=== PATIENT | female | born 1965 | race Caucasian/White ===

== ENCOUNTER 2019-08-16 06:05 | Inpatient (IN) | payer OTHER, SELFPAY ==
[2019-08-06 14:02] VITALS: BMI 32.1
[2019-08-16] VITALS (18 sets, daily range): BP systolic 109–140; BP diastolic 55–75; PULSE 76–102; RESP 11–20; TEMP 36–37; O2SAT 92–100; BMI 32.1
--- NOTE | 2019-08-16 | DI.RAD.S_ITS ---
PROCEDURE: XR LUMBAR SPINE 2-3V INDICATIONS: L4-5 L5-S1 TLIF TECHNIQUE: 2 views of the lumbar spine were acquired. COMPARISON: [facility], CR, XR LUMBAR SPINE FLEXION EXTENSION, 11/13/2018, 7:38. FINDINGS: 2 intraoperative fluoroscopy images demonstrate discectomy, laminectomy and posterior fusion at L4-L5 and L5-S1. There is grade one anterolisthesis at L4-L5, which appears unchanged. IMPRESSION: Discectomy, laminectomy and posterior fusion of L4-L5 and L5-S1. Dictated by: Humphrey Pedersen M.D. on 08/16/2019 at 12:06 Approved by: Humphrey Pedersen M.D. on 08/16/2019 at 12:07
[2019-08-16] MEDS: LACTATED RINGERS 1,000 ML 42 ML IV ×3 (06:50→09:46)
--- NOTE | 2019-08-16 07:44 | PM.PREOP ---
Pre-operative Note Interval Note History & Physical reviewed/Exam performed by Physician: Yes Changes to H&P: No
[2019-08-16] MEDS: CEFAZOLIN 2 GM/100 ML FROZ.PIGGY IV ×3 (07:47→23:45)
--- NOTE | 2019-08-16 08:37 | SUR.OPER ---
Prone on spine table, head in foam head support, padded chest and pelvic supports, gel pad at knees, lower legs supported by pillows; nipples, genitalia and toes free of pressure, arms secured on foam padded arm boards at <90 degrees abduction. Tape over blanket at thigh secured to table.
[2019-08-16] MEDS: BUPIVACAINE 0.25% W/ EPI 30 ML VIAL INJ (08:48)
[2019-08-16] MEDS: BUPIVACAINE LIPOSOME 266 MG/20 ML VIAL INJ (08:48)
[2019-08-16] MEDS: ACETAMINOPHEN IV 1,000 MG/100 ML VIAL 400 MG IV (10:40)
--- NOTE | 2019-08-16 11:55 | P.OP_ITS ---
Operative Date/Time/Diagnoses Date of procedure: 08/16/19 Time of procedure: 08:06 Pre-op diagnosis: 1. L4-5, L5-S1 spondylolisthesis 2. L4-5, L5-S1 spinal stenosis Post-op diagnosis: same Procedure & Clinicians Procedure: 1. L4-5, L5-S1 Postero-lateral and posterior interbody fusion 2. L4-5, L5-S1 interbody cage placement. 3. L4-5, L5-S1 decompressive laminectomy with bilateral facetecomies 4. L4-5, L5-S1 Posterior segmental instrumentation 5. Decker of bone marrow from iliac crest 6. Utilization of microsurgical technique and operating microscope Same procedure as scheduled: Yes Indications: Patient has been having chronic back pain and worsening lumbar radiculopathy. Patient failed multiple conservative management with worsening pain weakness and numbness in her lower extremity. Patient has been having difficulty performing activity of daily living. After discussing risks benefits of treatment options, patient elected proceed with surgery. Surgeon: Berhane Duran Licensed Sales Assistant: Leidy Butler Anesthesia Type: General Operative Notes Closure Type: primary Specimen(s): none sent Prosthetic devices, grafts, tissues, transplants, or devices: Globus Revolve, Rise cages Applied: catheter Estimated Blood Loss (mL): 100 Blood products transfused: none Procedure in detail: Patient was seen in the preoperative area. Risks and benefits of the surgery was discussed with the patient. Informed consent was obtained from the patient and placed in the chart. Surgical site was marked. Patient was taken to the operative room. General anesthesia was administered. Prophylactic antibiotic was given to the patient less than 30 min before the incision was made. Patient was placed into a prone position on the Blu table. Patient's back was then prepped and draped in the sterile fashion. Time- out was performed at this time. Using AP and lateral C-arm imaging the interval between L4-S1 was identified and marked on patient's back. A 2 inch incision 2 in from midline was made on the right side first. The fascia was incised in line with skin incision. Globus MARS retractors was placed inside the incision and docked onto the L4 and L5 lamina. Using microsurgical technique and operating microscope, a L4 and L5 pérez inectomy and L4-5 L5-S1 facetectomy was performed using a Kerrison rongeur. During the process of decompression more than 75% of bilateral L4-5 L5-S1 facets were removed in order to decompress the spinal canal and the lateral recess. The L4-5 L5-S1 level was grossly unstable after the decompression was completed and requiring the fusion procedure. The disc space at L4-5, L5-S1 was identified. And a total diskectomy was performed at L4-5, L5-S1 level. The endplates were decorticated using a rasp and shaver. The total diskectomy and decortication was performed at L4-5, L5-S1 level in order to to accomplish a L4- 5, L5-S1 fusion. The local bone from the laminectomy and facetectomy was saved for local bone grafting. After the total diskectomy and decortication was completed, Bio4 bone graft material was combined with local bone that was harvested earlier. At this time, a separate skin is incision was made over the iliac crest. A Jamshidi needle was inserted into the iliac crest through a separate skin incision. 5 cc of bone marrow aspiration was obtained through the separate skin incision using a Jamshidi needle from the iliac crest. The bone marrow aspiration was combined with local bone and the Bio4 bone grafting material. The bone grafting material was placed into the L4-5, L5-S1 interbody space along with two cages, one expandable cage at each level. The cages were expanded to their maximum height using the torque limiting screwdriver. At this time a mirror image incision was made on the left side. The fascia was incised in line with the skin incision. Globus MARS retractor was inserted and docked onto the L4-5, L5-S1 posterolateral gutter. Using the power drill, posterior-lateral decortication was performed at L4-5, L5-S1 level until bleeding cortical bone was identified. The remaining bone grafting material was placed into the L4-5 L5-S1 posterior lateral gutter he order to accomplish posterolateral fusion at the L4-5 L5-S1 levels. Using the double C-arm technique, pedicle screws were placed into the L4, L5, S1 pedicles bilaterally. This was done by placing the Jamshidi needle into the pedicles, then placing the guidewires over the Jamshidi needle, and finally placing the cannulated screws over the guidewires bilaterally. After the pedicle screws were placed, 2 titanium rods was locked into the heads of the pedicle screws using locking caps and torque limiting screwdriver. Total 6 pedicles screws were placed. Thread reducers were used to reduce patient's spondylolisthesis. An appropriate reduction was accomplished using the reduction tools and hardware placed. After all the hardware was placed, and confirmed with AP and lateral C-arm imaging, the wound was then irrigated with sterile normal saline and packed with Ray-Lindsey gauze for 3 min to accomplish hemostasis. After the gauze was removed the deep fascia was closed with #1 Vicryl suture. The subcutaneous layer was closed with 2-0 Vicryl. The skin was closed with skin caitlin. Patient tolerated the procedure well. There were no complications. Complications: none Post-operative Condition: stable Disposition: PACU Plan for aftercare: Admit to inpatient hospital
[2019-08-16] MEDS: INSULIN ASPART 100 UNIT/ML 10ML VIAL SUBCUT (12:34)
--- NOTE | 2019-08-16 13:32 | PC.NURSE ---
Pt to room 213 via bed from PACU. Pt sleepy but appropriate and wakes easily. Denies pain or nausea. Given fresh ice water to drink. Assisted with roll to her left side to inspect back dressing. Pt reminded not to bend, lift, or twist and to logroll in/out of bed. Ramírez draining clear yellow urine. SCD's on feet as ordered and running. Pt oriented to room, call light, bed controls and tv controls. Pt denies needs at this time and agrees to call for assistance as needed.
[2019-08-16] MEDS: SODIUM CHLORIDE 0.9% 1,000 ML 100 ML IV ×2 (13:36→23:39)
--- NOTE | 2019-08-16 14:26 | PT-IP ANOTE ---
Pt arrived AC unit an hour ago. Pt still feel disoriented but able to answer questions for social hx and PLOF. Will attempt PT later this afternoon or tomorrow morning.
[2019-08-16] MEDS: ONDANSETRON 4 MG/2 ML INJ IV (14:44)
[2019-08-16] MEDS: HYDROMORPHONE 0.5 MG INJ IV ×4 (14:54→23:45)
[2019-08-16] MEDS: OXYCODONE IR 5 MG TABLET 10 MG PO ×2 (18:01→21:58)
[2019-08-16] MEDS: LOVASTATIN 20 MG TABLET 40 MG PO (18:09)
[2019-08-16] MEDS: LISINOPRIL 20 MG TABLET 40 MG PO (18:21)
[2019-08-16] MEDS: DOCUSATE 100 MG CAPSULE PO (20:18)
[2019-08-16] MEDS: INSULIN NPH 100 UNIT/ML VIAL 26 UNIT SUBCUT (20:19)
[2019-08-16] MEDS: METFORMIN HCL 500 MG TABLET 1000 MG PO (20:19)
[2019-08-16] MEDS: SENNOSIDES 8.6 MG TABLET 17.2 MG PO (20:19)
[2019-08-16] MEDS: BECLOMETHASONE 80 MCG INH 10.6 GM 1 PUFF INH (20:30)
[2019-08-16] MEDS: hydrOXYzine pamoate 25 MG CAPSULE PO (23:45)
[2019-08-17] VITALS (9 sets, daily range): BP systolic 116–132; BP diastolic 53–71; PULSE 98–105; RESP 12–18; TEMP 36.7–37.7; O2SAT 92–100
[2019-08-17] MEDS: HYDROMORPHONE 0.5 MG INJ IV (03:22)
[2019-08-17] MEDS: OXYCODONE IR 5 MG TABLET 10 MG PO ×3 (03:23→21:28)
[2019-08-17] MEDS: ACETAMINOPHEN 325 MG TABLET 650 MG PO ×2 (03:34→13:23)
[2019-08-17 06:03] LABS: Hematocrit 37.8 % (36-46); Hemoglobin 12.4 g/dL (12.0-16.0)
--- NOTE | 2019-08-17 07:43 | PC.NURSE ---
Pt VSS, except pt has been tachy this night in the 99-106. Lung sounds clear bilaterally. Pt has pain at times 10/10. W/ Q 3 10mg of oxycodone and Q2 Dilaudid pain was more manageable. Ice was applied. Dressing is clean/dry and intact and CMS is intact.
[2019-08-17] MEDS: BECLOMETHASONE 80 MCG INH 10.6 GM 1 PUFF INH ×2 (08:27→19:36)
[2019-08-17] MEDS: DOCUSATE 100 MG CAPSULE PO ×2 (08:53→21:14)
[2019-08-17] MEDS: dilTIAZem CD 240 MG CAP PO (08:53)
[2019-08-17] MEDS: METFORMIN HCL 500 MG TABLET 1000 MG PO ×2 (08:53→21:17)
[2019-08-17] MEDS: FLUTICASONE 120 SPRAY/16 GM SPRAY.SUSP NASAL (08:53)
[2019-08-17] MEDS: INSULIN NPH 100 UNIT/ML VIAL 20 UNIT SUBCUT (08:56)
[2019-08-17] MEDS: diphenhydrAMINE 25 MG TABLET PO (09:12)
--- NOTE | 2019-08-17 09:23 | PM.PNPO.1 ---
Subjective Subjective Date Patient Seen: 08/17/19 Time Patient Seen: 09:23 Interval history: Pain moderate to severe. Denies fever chills. No nausea vomiting. Patient has not yet been up with physical therapy. Otherwise without complaints. Exam Vital Signs (past 8 hours): - 08/17/19 06:00 08/17/19 08:27 08/17/19 08:30 Temperature 98.0 F Pulse Rate 102 H 101 H Respiratory Rate 18 12 Blood Pressure 116/53 L Pulse Oximetry 98 100 94 08/17/19 08:35 Temperature 99.7 F H Pulse Rate 101 H Respiratory Rate 16 Blood Pressure 123/60 Pulse Oximetry 96 Oxygen Delivery Method Room Air Oxygen Flow Rate 1 Narrative Exam Narrative: Pleasant 53-year-old female resting comfortably in bed in no apparent distress. Patient having breakfast. Lumbar dressing is clean, dry and intact. Motor functions intact distal bilateral lower extremities. Sensation grossly intact to light touch bilateral lower extremities. Both legs are warm and dry. Objective Labs Result Diagrams: 08/17/19 05:52 Labs: Laboratory Results - last 24 hr 08/17/19 05:52 Hgb 12.4 Hct 37.8 Assessment & Plan Post-op Postoperative Procedures: Procedures Operation Date: 08/16/19 07:45 Actual Procedures Side Surgeon p L4-5, L5-S1 TLIF w/posterior instrumentation Not Applicable Berhane Duran MD postop day 1. Mobilize with physical therapy. Benadryl ordered for itching. We will discontinue IV Dilaudid. Ordered 2 mg Dilaudid Q 4 hours as needed pain. Possible discharge home tomorrow. Quality VTE Deep Vein Thrombosis/Pulmonary Embolism Present on Admission: No
--- NOTE | 2019-08-17 10:11 | PT.IIE ---
Current Diagnoses Spondylolisthesis, lumbar region (08/16/19) Spondylolisthesis, lumbosacral region (08/16/19) Other spondylosis with radiculopathy, lumbosacral region (08/16/19) Spinal stenosis, lumbar region without neurogenic claudication (08/16/19) Surgery Performed Operation Date: 08/16/19 07:45 Actual Procedures p L4-5, L5-S1 TLIF w/posterior instrumentation(Not Applicable) - Berhane Duran MD Surgical History (Last Updated 08/15/19 @ 13:19 by Pastora Peralta RN) Hx of cholecystectomy (Acute) Hx of tonsillectomy (Acute) Hx of tubal ligation (Acute) S/P ankle ligament repair (Acute ~1969) Medical History (Last Updated 08/15/19 @ 13:19 by Pastora Peralta RN) Asthma (Acute) Back pain (Acute) Diabetes (Acute) Diabetic neuropathy (Acute) GERD (gastroesophageal reflux disease) (Acute) HLD (hyperlipidemia) (Acute) HTN (hypertension) (Acute) INDIRA on CPAP (Acute) Physical Therapy Inpatient Evaluation/Re-Eval M1 PT/OT-IP Prior Functional Status Start: 08/16/19 14:19 Freq: NEEDED Status: Active Protocol: Document 08/17/19 10:11 AB (Rec: 08/17/19 12:44 AB [id number]) Medical Review Prior Functional Status Medical History Reviewed Yes Diet/Fluid Consistency Regular Communication Able to make needs known Mobility and Gait pt stated that she is independent with all mobilities and ambulation without AD but occasionally uses a SPC depending on her back pain Activities of Daily Living and IADL's per OT's noteindependent with ADLs and IADLs who is also able to drive. Social History Household Members spouse,children Living Arrangements House Number of Floors (Floors) One Floor Number of Stairs To Enter/Railing? 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 M2 PT-IP Current Condition Start: 08/16/19 14:19 Freq: NEEDED Status: Active Protocol: Document 08/17/19 10:11 AB (Rec: 08/17/19 12:44 AB [id number]) Physical Therapy Current Condition Current Condition Evaluation Date 08/17/19 Treatment Diagnosis s/p L4-5, L5S1 fusion/lami; difficulty in walking Onset Date 08/16/19 Precautions Lumbar Precautions Log Roll,No Twisting,Limit Bending,Lifting Restriction of 10 lbs,Gait Belt above Incisional Area M3 PT-IP Subjective Start: 08/16/19 14:19 Freq: NEEDED Status: Active Protocol: Document 08/17/19 10:11 AB (Rec: 08/17/19 12:44 AB [id number]) Subjective Physical Therapy Visit Type Type Initial Evaluation Visit Start Time 10:11 Visit Stop Time 10:48 Total Visit Minutes 37 Number of IT ADMIN Visits 0 Physical Therapy Visit Comments Patient Comments pt agreeable to do PT Therapy Pain Assessment Pain When Pain Assessed At Rest Pain Present Pain Present Pain Reported Location back Intensity 4 Scale Used Numeric (1 - 10) Pain Management Techniques Re-positioning,Timing of Activity with Medications M4 PT-IP Mobility and Gait Start: 08/16/19 14:19 Freq: NEEDED Status: Active Protocol: Document 08/17/19 10:11 AB (Rec: 08/17/19 12:44 AB [id number]) PT-Bed Mobility Assessment Rolling Type of Rolling Log Rolling Level of Assist Moderate Assistance Supine to Sit Supine to Sit Maximum Assistance,1 Person Assistance Sit to Supine Sit to Supine Moderate Assistance PT-Transfer Assessment Comments Mobility Comments BP supine: 134/77 . pt completed supine to sit max A and max cues for log roll techiques. pt was able to sit on EOB CGA. CGA dizziness. BP sittin/65. pt sat for ~ 5 min. instructed with scooting on to EOB and completed with min A. c/o increase dizziness: BP 91/45. assisted pt back in bed due to pt's c/o getting really dizzy. completed sit to supine mod A and cues. positioned pt in bed. call light and table placed within reach. PT-Balance Assessment Sitting Balance and Reactions Static Sitting Balance Ability Good Dynamic Sitting Balance Ability Fair M5 PT-IP Objective Assessments Start: 08/16/19 14:19 Freq: NEEDED Status: Active Protocol: Document 08/17/19 10:11 AB (Rec: 08/17/19 12:44 AB [id number]) Orientation Orientation/Cognition Level of Alertness Alert Orientation Name,Place,Situation Language Function Ability Hard of Hearing Safety Awareness Decreased Safety Awareness Gross Range of Motion Lower Extremity ROM Assessment Within Functional Limits Strength Lower Extremity Strength Assessment Bilaterally Impaired Hip 3+/5 Knee 3+/5 Coordination Assessment Gross Coordination Gross Coordination WNL Sensation Assessment Sensation Gross Sensation Right LE Impaired,Left LE Impaired Light Touch Impaired Proprioception (Position) Impaired Sensation Description Numbness,Tingling Comments Sensation Comments stated the she has bilateral LE diabetic neuropathy Muscle Tone Muscle Tone WNL Yes M6 PT-IP Treatment Start: 08/16/19 14:19 Freq: NEEDED Status: Active Protocol: Document 08/17/19 10:11 AB (Rec: 08/17/19 12:44 AB [id number]) Physical Therapy Treatment Exercises Exercises Heel Slides Education Education Provided Precautions,Weight Bearing Status,Post-Op Packet,Safety M7 PT-IP Assessment and Plan Start: 08/16/19 14:19 Freq: NEEDED Status: Active Protocol: Document 08/17/19 10:11 AB (Rec: 08/17/19 12:44 AB [id number]) PT Summary Assessment and Plan Potential Rehabilitation Potential Good Status of Condition at Evaluation Evolving Summary Impairments Pain,ROM,Strength,Balance, Coordination,Sensation,Tone, Cognition,Bed Mobility, Transfers,Gait,Activity Tolerance Assessment Summary pt requiring max A with bed mobility and unable to tolerate much activity with decrease in BP sitting on EOB. will have to assess further to determine pt's functional mobility and safe d/c needs. pt plans to go home and spouse /children will assist her. will have to conduct caregiver training when appropriate. Goals Bed Mobility Goal Standby Assistance Transfer Goal Standby Assistance,Front Wheeled Walker Gait Goal Standby Assistance,Front Wheel Walker Gait Distance 150 Other Goals up/down 1 step using FWW Days to Meet Goals 10 Frequency of Treatment Frequency Of Treatment Twice a Day Treatment Plan Physical Therapy Treatment Plan Bed Mobility Training,Transfer Training,Gait Training, Therapeutic Exercise,Balance Retraining,Post Op Education, Discharge Planning,Hot or Cold Pack,Neuromuscular Re-ed, Coordination Retraining,Manual Therapy Recommendations To Nursing Amount of Assist Needed PT/OT Assist Only Discharge Recommendations PT Discharge Recommendations Home with 19/06 Assist,Home Health,SNF Rehab Other Discharge Recommendations depending on progress: SNF vs home with 24/7 and HHPT Equipment Needed for Home Before FWW if not safe with 4WW Discharge
[2019-08-17] MEDS: INSULIN ASPART 100 UNIT/ML INSULN PEN SUBCUT ×2 (12:20→18:40)
[2019-08-17] MEDS: INSULIN ASPART 100 UNIT/ML INSULN PEN 10 UNIT SUBCUT ×2 (12:20→18:39)
--- NOTE | 2019-08-17 14:45 | PT-IP ANOTE ---
Hold per RN, due to low BP and dizziness.
--- NOTE | 2019-08-17 16:29 | OT.IP.EVAL ---
Current Diagnoses Spondylolisthesis, lumbar region (08/16/19) Spondylolisthesis, lumbosacral region (08/16/19) Other spondylosis with radiculopathy, lumbosacral region (08/16/19) Spinal stenosis, lumbar region without neurogenic claudication (08/16/19) Surgery Performed Operation Date: 08/16/19 07:45 Actual Procedures p L4-5, L5-S1 TLIF w/posterior instrumentation(Not Applicable) - Berhane Duran MD Past Medical History (Last Updated 08/15/19 @ 13:19 by Pastora Peralta RN) Asthma (Acute) Back pain (Acute) Diabetes (Acute) Diabetic neuropathy (Acute) GERD (gastroesophageal reflux disease) (Acute) HLD (hyperlipidemia) (Acute) HTN (hypertension) (Acute) INDIRA on CPAP (Acute) Surgical History (Last Updated 08/15/19 @ 13:19 by Pastora Peralta RN) Hx of cholecystectomy (Acute) Hx of tonsillectomy (Acute) Hx of tubal ligation (Acute) S/P ankle ligament repair (Acute ~1969) Occupational Therapy Inpatient Evaluation/Re-Eval M1 PT/OT-IP Prior Functional Status Start: 08/16/19 14:19 Freq: NEEDED Status: Active Protocol: Document 08/17/19 16:14 CGR (Rec: 08/17/19 16:29 CGR [id number]) Medical Review Prior Functional Status Medical History Reviewed Yes Diet/Fluid Consistency Regular Communication Able to make needs known Mobility and Gait pt stated that she is independent with all mobilities and ambulation without AD but occasionally uses a SPC depending on her back pain Activities of Daily Living and IADL's Pt is independent with ADLs and IADLs who is also able to drive. Social History Household Members spouse,children Living Arrangements House Number of Floors (Floors) One Floor Number of Stairs To Enter/Railing? 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 M2 OT-IP Current Condition Start: 08/17/19 16:14 Freq: Status: Active Protocol: Document 08/17/19 16:14 CGR (Rec: 08/17/19 16:29 CGR [id number]) Occupational Therapy Current Condition Current Condition Evaluation Date 08/17/19 Treatment Diagnosis L4-S1 TLIF Post Operative Precautions Lumbar Precautions Log Roll,No Twisting,Limit Bending,Lifting Restriction of 10 lbs,Gait Belt above Incisional Area M3 OT- IP Subjective and Pain Start: 08/17/19 16:14 Freq: Status: Active Protocol: Document 08/17/19 16:14 CGR (Rec: 08/17/19 16:29 CGR [id number]) OT- Subjective Occupational Therapy Visit Type Type Initial Evaluation Visit Start Time 14:45 Visit Stop Time 15:15 Total Visit Minutes 41 Notes Earlier session to obtain Pts home set up and PLOF from 1120 -1131. Returned later in day after pt has been sitting up for some time. OT Pain Assessment Pain When Pain Assessed At Rest Pain Present Pain Present Pain Reported Location back Intensity 2 Scale Used Numeric (1 - 10) Management Techniques Distraction M4 OT- IP ADL's Start: 08/17/19 16:14 Freq: Status: Active Protocol: Document 08/17/19 16:14 CGR (Rec: 08/17/19 16:29 CGR [id number]) OT UOL-[id number]-Kturjyz Comments OT Self-Feeding Comments Not meal time but pt is able to get water glass to mouth without difficulty. OT ADL-Grooming Comments OT Grooming Comments Not performed OT ADL-Oral Care Comments Oral Care Comments Not performed OT ADL-Dressing General Eval Lower Body Dressing Ability Total Assistance Areas Needing Assistance Socks Comments OT Dressing Comments Pt states that she was able to doff socks without assist. Not witnessed. OT ADL-Toileting Comments OT Toileting Comments Not performed in this session. OT ADL-Bathing Comments OT Bathing Comments Not performed in this session. M5 OT- IP IADL's Start: 08/17/19 16:14 Freq: Status: Active Protocol: Document 08/17/19 16:14 CGR (Rec: 08/17/19 16:29 CGR [id number]) OT-Instrumental Activities of Daily Living Deficits IADL Deficits Identified No Deficits Home Safety Awareness Awareness of Need for Assistance at Home Good Awareness Ability to Problem Solve Emergency Able to Problem Solve Situations Medication Management Medication Management No Deficits Identified Money Management Money Management No Deficits Identified Meal Preparation Meal Preparation Caregiver Provides Assist Drawbridge Tender Drawbridge Tender Caregiver Provides Assist Driving Driving Caregiver Provides Assist M6 OT- IP Functional Cognition Start: 08/17/19 16:14 Freq: Status: Active Protocol: Document 08/17/19 16:14 CGR (Rec: 08/17/19 16:29 CGR [id number]) Cognitive Factors Limiting Selfcare Function Cognitive Ability Level of Alertness Alert Patient Orientation Name,Age,Birthday,Month,Date, Year,Day of Week,Place, Situation Attention Span Ability Capable of Focused Attention, Capable of Sustained Attention Ability to Follow Commands Able to Follow Multi-Step Commands Memory Description No Deficits Noted Safety Awareness No Deficits Noted Problem Solving Ability No deficits Noted Executive Function Ability No Deficits Noted Abstract Thinking Ability No Deficits Noted OT- Vision and Hearing OT- Hearing Assessment OT- Hearing Assessment WFL OT- Vision Assessment Visual Acuity WFL,Glasses For Reading Visual Attentiveness WFL Occular Pursuits WFL Visual Convergence WFL Visual [place] WFL M7 OT- IP Mobility and Balance Start: 08/17/19 16:14 Freq: Status: Active Protocol: Document 08/17/19 16:14 CGR (Rec: 08/17/19 16:29 CGR [id number]) OT- Bed Mobility Assessment Rolling Level of Assistance Minimal Assistance Supine to Sit Supine to Sit Assist Minimal Assistance Sit to Supine Sit to Supine Assist Maximum Assistance,2 Person Assistance Scooting Scooting to Edge of Bed Contact Guard Assistance OT-Transfer Assessment Sit to and From Stand Sit to and from Stand Minimal Assistance Comments Mobility Comments Pt has been hypotensive with positional changes. 133/73 supine, 123/71 sitting, 110/45 standing then states feeling dizzy. Returned to supine with max x 2 for safety. OT- Gait Assessment Comments Gait Ability Comments Not performed d/t orthostatic hypotension. OT- Balance Assessment Sitting Balance and Reactions Static Sitting Balance Ability Good Dynamic Sitting Balance Ability Fair M8 OT- IP Objective Assessments Start: 08/17/19 16:14 Freq: Status: Active Protocol: Document 08/17/19 16:14 CGR (Rec: 08/17/19 16:29 CGR [id number]) OT Gross Range of Motion Upper Extremity Range of Motion Assessment Within Functional Limits OT Strength Upper Extremity Strength Assessment Within Functional Limits Comments Strength Comments Grossly 4/5 OT- Coordination Assessment Upper Extremity Finger to Nose Test Within Functional Limits Finger Tapping Test Within Functional Limits OT-Muscle Tone Assessment Muscle Tone WNL Yes OT Sensation Assessment Edema Edema Absent M9 OT- IP Assessment and Plan Start: 08/17/19 16:14 Freq: Status: Active Protocol: Document 08/17/19 16:14 CGR (Rec: 08/17/19 16:29 CGR [id number]) OT Summary Assessment and Plan Potential Rehabilitation Potential Good Analytic Complexity at Evaluation Low Summary OT Impairments Pain,Functional Mobility, Grooming,Dressing,Toileting, Bathing,Toilet Transfers, Shower Transfers Progress Towards Goals Slow Progress due to Medical Issues Assessment Summary Pt presents as a low complexity evaluation s/p lumbar sx. Pt currently is orthostatic with positional changed which limited OT eval. Pt is likely to progress quickly with ADLs and functional mobility once she is able to tolerate upright posture. Continue to follow for OT services. At this time SNF is recommended d/t orthostatics but pt is likely to progress to be safe for d/c home with family prior to discharge. Goals Grooming Goal Independent Dressing Goal Independent,Farm Products Shipper,Sock Aid Toileting Goal Independent Bathing Goal Independent Toilet Transfer Goal Independent Shower Transfer Goal Independent Days to Meet Goals 5 Frequency of Treatment Frequency Of Treatment Once a Day Treatment Plan OT Treatment Plan ADL Training,Functional Mobility,Patient/Family Education,Discharge Planning Discharge Recommendations OT Discharge Recommendations Home with Assistance Other Discharge Recommendations SNF d/t orthostatics but likely to progress to safe discharge home once she is able to mobilize.
--- NOTE | 2019-08-17 16:29 | CM.DANOTE ---
Addendum entered by Rajani Solis 08/17/19 17:21: Faxed initial clinicals to [place] per protocol. KJS Original Note: DCP/Assessment: Reviewed chart. Patient is a 53yr old female admitted [facility] elective spinal surgery performed on 08-16-[address] Duran. PCP listed is Suze Garcia. Primary payor is 1)[facility]. Met with patient and spouse/Taon at bedside explained CM/SW role. Patient hopes to d/c home within the next 24-48hrs. Therapy evaluation pending. Patient reports that she is primarily I in all ADL's. Has walker in room but did not use prior to surgery. Patient drives at baseline. Spouse supportive and agreeable to assist as needed. P: Anticipate home when stable. CM team to continue to follow. VIRGIE Demarco Discharge Planning/Care Management CM Discharge Assessment Start: 08/17/19 16:27 Freq: Status: Active Protocol: Document 08/17/19 16:28 ANITAS (Rec: 08/17/19 16:29 KJ [id number]) Discharge Planning Assessment Assigned Protection Consultant VIRGIE Demarco Contact Information Toan Glasgow (spouse) Advance Directives? No History Provided By Patient,Significant Other, Medical Record Prior Living Arrangements House Household Members spouse,children Type of transporation used prior to Drives own vehicle admit Independent with ADL's Yes Is patient alert and oriented? Yes Caregiver for Another No DME Already Rented / Owned FWW / Walker Barriers to Discharge No Discharge Plan Home Transportation Arrangement Family to provide transport. Whiteboard Updated in Patient Room with Yes name and ext. # of Protection Consultant Review Status In Process Next Review Type Continued Stay Review Pre-Anesthesia Assessment Start: 08/06/19 14:02 Freq: Status: Complete Protocol: Document 08/06/19 14:02 CAB (Rec: 08/06/19 14:05 CAB [id number]) Pre-Anesthesia Assessment Patient Information Reviewed Via Phone Assessment Assessment Completed With Patient Diagnostic Results BMP/CMP,CBC Comment Labs @ [facility] 06/30/19 Primary Care Provider Suze Garcia Seen Specialist in Last 12 Months Yes Specialist Seen Orthopedist,Other Comment Pain specialist Primary Language Greenlandic Resourcing Advisor Required No Height 165.1 cm Weight 87.543 kg Body Mass Index (BMI) 32.1 Hearing Ability Normal Visual Assist Glasses Dentition Type Teeth, Natural Present Barriers to Learning None Other Aids No Hx Anesthesia Reactions No Hx Family Anesthesia Reaction No Hx Malignant Hyperthermia No Hx Blood Transfusions No Anesthesia Review Requested No alcohol intake former Alcohol Intake Frequency Other: Quit age 20 Smoking Status Never smoker Substance Use Type does not use Pain Present Pain Reported Musculoskeletal Symptoms Abnormal Gait,Back Pain, Difficulty Walking,Muscle Weakness,Numbness,Radiating Pain into Limb History of Falling (Recent or History of No ) Patient is completely paralyzed or No completely immobile Prosthesis or Orthotic Device Cane,Front Wheel Walker Mental Status Oriented to own ability Is patient on oxygen? No Does patient have SANDERSON/SOB No: r/t Asthma Hx Sleep Apnea Yes CPAP/BIPAP use prescribed and used routinely Will Bring CPAP/BIPAP DOS Yes Currently Taking a Beta Robert No Can You Climb a Flight of Stairs Without No: r/t Asthma SOB Hx Chest Pain No Hx SOB No Hx Syncope or Dizziness No Anti-Coagulant Therapy No Has a Correctional Supervisor No Cardiac Testing No Hx Pacemaker/ICD No Pacemaker Rep Required? No Cardiac Clearance Received Not Applicable Diet Type At Home Regular dysphagia No Urinary Catheter Present No Hx Urinary Self Catheterization No Diabetes Yes: Checks blood sugars 6x/ day HgbA1C 6.1 Date 06/30/19 Patient No Lactating No Hx Drug Resistant Organism No Presence of External or Internal Medical Yes: IUD Devices Have you traveled outside the [facility] [place] in the last 30 days? Marital Status Lives With spouse,children Prior Living Arrangements House Number of Floors (Floors) One Floor Support System Child/Children,Friend(s), Spouse Patient Discharge Plan Description Return Home Comment Pt advised 2 day length of stay per surgeon Feels Safe in Current Environment Yes Been Physically Hurt or Threatened By a No Person in Current Environment Do you have thoughts of harming yourself None or others? Are you currently considering suicide? No Do you have a plan to hurt yourself or No Plan others? Do You Have Any Spiritual Beliefs That No May Affect Your HC Choices? Do You Have Any Cultural Practices That No May Affect Your HC Choices? Who Can We Speak to About Patient's Care family, friends Identifying Code for Release of Patient Declines to issue Information Health Care Proxy/Next of Kin Hugo Joya () Health Care Proxy Emergency Contact Name Hugo Joya () Emergency Contact Advance Directives? No: declines further information PAC Instructions Bring CPAP/BIPAP,Durable medical equipment,Medications to take/avoid,Nasal antibiotic ,No ETOH/petroleum product on skin DOS,NPO,Post-op transportation,Pre-surgical wash,Sturdy shoes/comfortable clothes,Do not bring valuables and remove jewelry
--- NOTE | 2019-08-17 18:27 | PC.NURSE ---
Addendum entered by Julia Pierre R.N. 08/17/19 22:14: Pt med @ 2100 for discomfort w/good relief. Ramírez cath patent clear urine. HS CBG = 185 HL intact/patent. Stable post op course. Call light w/in reach, bed alarm on for pt safety. Continue w/plan of care. Original Note: Pt resting at intervals. Denies discomfort at this time. Lungs clear,SpO2 96%RA Dsg to surgical back CDI. Ramírez cath patent clear urine. Call light w/in reach. Pt calls appropriately for needs.
[2019-08-17] MEDS: LISINOPRIL 20 MG TABLET 40 MG PO (18:38)
[2019-08-17] MEDS: INSULIN NPH 100 UNIT/ML VIAL 26 UNIT SUBCUT (21:10)
[2019-08-17] MEDS: LOVASTATIN 20 MG TABLET 40 MG PO (21:14)
[2019-08-17] MEDS: SENNOSIDES 8.6 MG TABLET 17.2 MG PO (21:17)
[2019-08-17] MEDS: hydrOXYzine pamoate 25 MG CAPSULE PO (21:28)
[2019-08-18] VITALS (9 sets, daily range): BP systolic 101–129; BP diastolic 53–65; PULSE 85–106; RESP 16–20; TEMP 36.3–37.6; O2SAT 94–98
[2019-08-18] MEDS: ACETAMINOPHEN 325 MG TABLET 650 MG PO ×3 (03:24→20:36)
--- NOTE | 2019-08-18 03:28 | PC.NURSE ---
Addendum entered by Marleen Angel R.N. 08/18/19 05:42: Pt refuses to have Darrell GAYTAN'd at this time. She is concerned about her mobility and lack of mobility that she had w/ PT. Pt is encouraged to use IS, do deep breathing and coughing. Pt has SCD's applied this night. Original Note: PT VSS, pain level 1/10 medicated with tylenol 650mg. SCD's applied, pt intructed to use IS.
[2019-08-18] MEDS: BECLOMETHASONE 80 MCG INH 10.6 GM 1 PUFF INH ×2 (07:33→19:32)
[2019-08-18] MEDS: FLUTICASONE 120 SPRAY/16 GM SPRAY.SUSP NASAL (08:49)
[2019-08-18] MEDS: dilTIAZem CD 240 MG CAP PO (08:50)
[2019-08-18] MEDS: INSULIN NPH 100 UNIT/ML VIAL 20 UNIT SUBCUT (08:54)
[2019-08-18] MEDS: DOCUSATE 100 MG CAPSULE PO ×2 (08:58→20:36)
[2019-08-18] MEDS: INSULIN ASPART 100 UNIT/ML INSULN PEN 10 UNIT SUBCUT ×3 (08:58→16:47)
[2019-08-18] MEDS: METFORMIN HCL 500 MG TABLET 1000 MG PO ×2 (08:58→20:36)
--- NOTE | 2019-08-18 09:55 | PT.IPTN ---
Current Diagnoses Spondylolisthesis, lumbar region (08/16/19) Spondylolisthesis, lumbosacral region (08/16/19) Other spondylosis with radiculopathy, lumbosacral region (08/16/19) Spinal stenosis, lumbar region without neurogenic claudication (08/16/19) Surgery Performed Operation Date: 08/16/19 07:45 Actual Procedures p L4-5, L5-S1 TLIF w/posterior instrumentation(Not Applicable) - Berhane Duran MD Physical Therapy Treatment Note M2 PT-IP Current Condition Start: 08/16/19 14:19 Freq: NEEDED Status: Active Protocol: Document 08/17/19 10:11 AB (Rec: 08/17/19 12:44 AB [id number]) Physical Therapy Current Condition Current Condition Evaluation Date 08/17/19 Treatment Diagnosis s/p L4-5, L5S1 fusion/lami; difficulty in walking Onset Date 08/16/19 Precautions Lumbar Precautions Log Roll,No Twisting,Limit Bending,Lifting Restriction of 10 lbs,Gait Belt above Incisional Area M3 PT-IP Subjective Start: 08/16/19 14:19 Freq: NEEDED Status: Active Protocol: Document 08/18/19 09:28 CLB (Rec: 08/18/19 12:03 CLB [id number]) Subjective Physical Therapy Visit Type Type Treatment Note Visit Start Time 09:28 Visit Stop Time 09:55 Total Visit Minutes 27 Number of MEDICAL REIMBURSEMENT SPECIALIST Visits 1 Physical Therapy Visit Comments Patient Comments pt agreeable to do PT Therapy Pain Assessment Pain When Pain Assessed At Rest Pain Present Pain Present Pain Reported Location back Intensity 1 Scale Used Numeric (1 - 10) Pain Management Techniques Re-positioning,Timing of Activity with Medications M4 PT-IP Mobility and Gait Start: 08/16/19 14:19 Freq: NEEDED Status: Active Protocol: Document 08/18/19 09:28 CLB (Rec: 08/18/19 12:03 CLB [id number]) PT-Bed Mobility Assessment Rolling Type of Rolling Log Rolling Level of Assist Minimal Assistance Supine to Sit Supine to Sit Minimal Assistance,1 Person Assistance,Bedrails Sit to Supine Sit to Supine Minimal Assistance,1 Person Assistance Scooting Scooting to Edge of Bed Standby Assistance PT-Transfer Assessment Sit to and From Stand Sit to and from Stand Minimal Assistance,1 Person Assistance,Use of Upper Extremities Comments Mobility Comments BP in supine 131/64, BP in sitting 128/69, Pt stood and while waiting for BP pt began to get dizzy stating she felt tingly and felt her hands going numb. Pt BP in standing 95/55, pt was returned to supine Min A where she recovered quickly and dizziness subsided. Pt wanted to try standing once more with same results this time was able to sit at EOB to recover. Pt was returned to supine after sitting for a few minutes Min A. Gait Assessment Comments Gait Comments unable at this time due to BP. M5 PT-IP Objective Assessments Start: 08/16/19 14:19 Freq: NEEDED Status: Active Protocol: Document 08/17/19 10:11 AB (Rec: 08/17/19 12:44 AB [id number]) Orientation Orientation/Cognition Level of Alertness Alert Orientation Name,Place,Situation Language Function Ability Hard of Hearing Safety Awareness Decreased Safety Awareness Gross Range of Motion Lower Extremity ROM Assessment Within Functional Limits Strength Lower Extremity Strength Assessment Bilaterally Impaired Hip 3+/5 Knee 3+/5 Coordination Assessment Gross Coordination Gross Coordination WNL Sensation Assessment Sensation Gross Sensation Right LE Impaired,Left LE Impaired Light Touch Impaired Proprioception (Position) Impaired Sensation Description Numbness,Tingling Comments Sensation Comments stated the she has bilateral LE diabetic neuropathy Muscle Tone Muscle Tone WNL Yes M6 PT-IP Treatment Start: 08/16/19 14:19 Freq: NEEDED Status: Active Protocol: Document 08/17/19 10:11 AB (Rec: 08/17/19 12:44 AB [id number]) Physical Therapy Treatment Exercises Exercises Heel Slides Education Education Provided Precautions,Weight Bearing Status,Post-Op Packet,Safety M7 PT-IP Assessment and Plan Start: 08/16/19 14:19 Freq: NEEDED Status: Active Protocol: Document 08/18/19 09:28 CLB (Rec: 08/18/19 12:03 CLB [id number]) PT Summary Assessment and Plan Potential Rehabilitation Potential Good Status of Condition at Evaluation Evolving Summary Impairments Pain,ROM,Strength,Balance, Coordination,Sensation,Tone, Cognition,Bed Mobility, Transfers,Gait,Activity Tolerance Assessment Summary Pt improving with bed mobility requiring Min A and Min A for sit-stand. Pt unable to proceed with ambulation due to drop in BP with c/o dizziness . Pt had 1/10 pain during tx and recalled 1/3 back precautions. Pt left in bed with SCD's on and RN at bedside. Goals Bed Mobility Goal Standby Assistance Transfer Goal Standby Assistance,Front Wheeled Walker Gait Goal Standby Assistance,Front Wheel Walker Gait Distance 150 Other Goals up/down 1 step using FWW Days to Meet Goals 10 Frequency of Treatment Frequency Of Treatment Twice a Day Treatment Plan Physical Therapy Treatment Plan Bed Mobility Training,Transfer Training,Gait Training, Therapeutic Exercise,Balance Retraining,Post Op Education, Discharge Planning,Hot or Cold Pack,Neuromuscular Re-ed, Coordination Retraining,Manual Therapy Recommendations To Nursing Amount of Assist Needed PT/OT Assist Only Discharge Recommendations PT Discharge Recommendations Home with 24/7 Assist,Home Health,SNF Rehab Other Discharge Recommendations depending on progress: SNF vs home with 24/7 and HHPT Equipment Needed for Home Before FWW if not safe with 4WW Discharge
--- NOTE | 2019-08-18 11:54 | PM.PNPO.1 ---
Subjective Subjective Date Patient Seen: 08/18/19 Time Patient Seen: 11:54 Interval history: Recovering well status post lumbar surgery by Dr. Duran. No complaints of pain but still having some lightheadedness when standing and walking which is slowing down rehabilitation. Exam Vital Signs (past 8 hours): - 08/18/19 05:59 08/18/19 07:37 08/18/19 08:00 Temperature 97.4 F L 98.8 F Pulse Rate 85 93 H 92 H Respiratory Rate 16 16 18 Blood Pressure 118/64 121/62 Pulse Oximetry 95 97 94 Fraction of Inspired Oxygen 21 Oxygen Delivery Method Room Air Oxygen Flow Rate 0 Narrative Exam Narrative: Dressing dry and intact distal neurovascular exam is intact. Objective Labs Result Diagrams: 08/17/19 05:52 Assessment & Plan Post-op Postoperative Procedures: Procedures Operation Date: 08/16/19 07:45 Actual Procedures Side Surgeon p L4-5, L5-S1 TLIF w/posterior instrumentation Not Applicable Berhane Duran MD Postoperative status narrative: Doing well somewhat slow recovery due to orthostasis. Anticipate this will improve substantially over the next 24 hours with fluid management and decreased medication. Postoperative plan narrative: Anticipated discharge home tomorrow Time Spent With Patient Time with patient: less than 15 minutes Quality VTE Deep Vein Thrombosis/Pulmonary Embolism Present on Admission: No
--- NOTE | 2019-08-18 13:23 | PT.IPTN ---
Current Diagnoses Spondylolisthesis, lumbar region (08/16/19) Spondylolisthesis, lumbosacral region (08/16/19) Other spondylosis with radiculopathy, lumbosacral region (08/16/19) Spinal stenosis, lumbar region without neurogenic claudication (08/16/19) Surgery Performed Operation Date: 08/16/19 07:45 Actual Procedures p L4-5, L5-S1 TLIF w/posterior instrumentation(Not Applicable) - Berhane Duran MD Physical Therapy Treatment Note M2 PT-IP Current Condition Start: 08/16/19 14:19 Freq: NEEDED Status: Active Protocol: Document 08/17/19 10:11 AB (Rec: 08/17/19 12:44 AB [id number]) Physical Therapy Current Condition Current Condition Evaluation Date 08/17/19 Treatment Diagnosis s/p L4-5, L5S1 fusion/lami; difficulty in walking Onset Date 08/16/19 Precautions Lumbar Precautions Log Roll,No Twisting,Limit Bending,Lifting Restriction of 10 lbs,Gait Belt above Incisional Area M3 PT-IP Subjective Start: 08/16/19 14:19 Freq: NEEDED Status: Active Protocol: Document 08/18/19 13:00 CLB (Rec: 08/18/19 13:41 CLB [id number]) Subjective Physical Therapy Visit Type Type Treatment Note Visit Start Time 13:00 Visit Stop Time 13:23 Total Visit Minutes 23 Number of JUNIOR UNDERWRITER Visits 2 Physical Therapy Visit Comments Patient Comments pt agreeable to do PT Therapy Pain Assessment Pain When Pain Assessed At Rest Pain Present Pain Present Denied Pain M4 PT-IP Mobility and Gait Start: 08/16/19 14:19 Freq: NEEDED Status: Active Protocol: Document 08/18/19 13:00 CLB (Rec: 08/18/19 13:41 CLB [id number]) PT-Bed Mobility Assessment Rolling Type of Rolling Log Rolling Level of Assist Standby Assistance Supine to Sit Supine to Sit Standby Assistance,Bedrails Sit to Supine Sit to Supine Standby Assistance,1 Person Assistance,Bedrails Scooting Scooting to Edge of Bed Standby Assistance PT-Transfer Assessment Sit to and From Stand Sit to and from Stand Minimal Assistance,1 Person Assistance,Use of Upper Extremities Equipment Transfer Assistive Device Gait Belt,Front Wheeled Walker Orthotic/Prosthetic Devices or Brace: No Transfers Transfer Destination Chair Transfer Technique Stand Step Pivot Transfer Ability Level of Assist Contact Guard Assistance,1 Person Assistance,Use of Upper Extremities Comments Mobility Comments BP in standing 133/56 without c/o dizziness. Gait Assessment Gait Gait Assistance Required: Contact Guard Assist,1 Person Assist Distance (Feet) 12 Able to Maintain Weight Bearing Status Yes During Gait Assistive Devices Assistive Device Gait Belt,Front Wheeled Walker Orthotic/Prosthetic Devices or Brace: No Gait Deviations General Gait Pattern Decreased Stride Length, Decreased Feet Clearance Factors Limiting Gait Function Factors Limiting Gait Function Decreased Activity Tolerance, Decreased Strength,Limited Range of Motion,Poor Balance Comments Gait Comments Pt able to ambulate ~12ft with one standing rest break and chair follow. Pt denied dizziness during gait. BP in sitting after activity 110/61. M5 PT-IP Objective Assessments Start: 08/16/19 14:19 Freq: NEEDED Status: Active Protocol: Document 08/17/19 10:11 AB (Rec: 08/17/19 12:44 AB [id number]) Orientation Orientation/Cognition Level of Alertness Alert Orientation Name,Place,Situation Language Function Ability Hard of Hearing Safety Awareness Decreased Safety Awareness Gross Range of Motion Lower Extremity ROM Assessment Within Functional Limits Strength Lower Extremity Strength Assessment Bilaterally Impaired Hip 3+/5 Knee 3+/5 Coordination Assessment Gross Coordination Gross Coordination WNL Sensation Assessment Sensation Gross Sensation Right LE Impaired,Left LE Impaired Light Touch Impaired Proprioception (Position) Impaired Sensation Description Numbness,Tingling Comments Sensation Comments stated the she has bilateral LE diabetic neuropathy Muscle Tone Muscle Tone WNL Yes M6 PT-IP Treatment Start: 08/16/19 14:19 Freq: NEEDED Status: Active Protocol: Document 08/17/19 10:11 AB (Rec: 08/17/19 12:44 AB [id number]) Physical Therapy Treatment Exercises Exercises Heel Slides Education Education Provided Precautions,Weight Bearing Status,Post-Op Packet,Safety M7 PT-IP Assessment and Plan Start: 08/16/19 14:19 Freq: NEEDED Status: Active Protocol: Document 08/18/19 13:00 CLB (Rec: 08/18/19 13:41 CLB [id number]) PT Summary Assessment and Plan Potential Rehabilitation Potential Good Status of Condition at Evaluation Evolving Summary Impairments Pain,ROM,Strength,Balance, Coordination,Sensation,Tone, Cognition,Bed Mobility, Transfers,Gait,Activity Tolerance Assessment Summary Pt continues to improve with bed mobility and was able to ambulate ~12ft with chair follow for safety. Pt BP in standing before activity 133/ 56, BP in sitting after activity 110/61. Pt will need stair training and increase gait distance before d/c home. CG training with should also be done before pt d/c home with assist. Goals Bed Mobility Goal Standby Assistance Transfer Goal Standby Assistance,Front Wheeled Walker Gait Goal Standby Assistance,Front Wheel Walker Gait Distance 150 Other Goals up/down 1 step using FWW Days to Meet Goals 10 Frequency of Treatment Frequency Of Treatment Twice a Day Treatment Plan Physical Therapy Treatment Plan Bed Mobility Training,Transfer Training,Gait Training, Therapeutic Exercise,Balance Retraining,Post Op Education, Discharge Planning,Hot or Cold Pack,Neuromuscular Re-ed, Coordination Retraining,Manual Therapy Recommendations To Nursing Amount of Assist Needed 1 Person Assist Discharge Recommendations Other Discharge Recommendations depending on progress: SNF vs home with 24/7 and HHPT Equipment Needed for Home Before FWW if not safe with 4WW Discharge
[2019-08-18] MEDS: LISINOPRIL 20 MG TABLET 40 MG PO (16:45)
[2019-08-18] MEDS: INSULIN ASPART 100 UNIT/ML INSULN PEN SUBCUT (16:48)
[2019-08-18] MEDS: SENNOSIDES 8.6 MG TABLET 17.2 MG PO (20:36)
[2019-08-18] MEDS: INSULIN NPH 100 UNIT/ML VIAL 26 UNIT SUBCUT (20:38)
[2019-08-18] MEDS: LOVASTATIN 20 MG TABLET 40 MG PO (20:40)
[2019-08-18] MEDS: SODIUM CHLORIDE 0.9% FLUSH 10 ML IV (20:40)
[2019-08-18] MEDS: hydrOXYzine pamoate 25 MG CAPSULE PO (20:46)
[2019-08-18] MEDS: OXYCODONE IR 5 MG TABLET 10 MG PO (22:53)
[2019-08-19 05:51] VITALS: BP 105/66; PULSE 101; RESP 16; TEMP 37.2; O2SAT 96
[2019-08-19 07:40] VITALS: BP 113/65; PULSE 99; RESP 18; TEMP 36.6; O2SAT 98
[2019-08-19] MEDS: FLUTICASONE 120 SPRAY/16 GM SPRAY.SUSP NASAL (08:49)
[2019-08-19] MEDS: MAGNESIUM HYDROXIDE 30 ML UDC PO (08:52)
[2019-08-19] MEDS: METFORMIN HCL 500 MG TABLET 1000 MG PO (08:54)
[2019-08-19] MEDS: DOCUSATE 100 MG CAPSULE PO (08:54)
[2019-08-19] MEDS: dilTIAZem CD 240 MG CAP PO (08:54)
[2019-08-19] MEDS: INSULIN ASPART 100 UNIT/ML INSULN PEN 10 UNIT SUBCUT ×2 (08:55→12:02)
[2019-08-19] MEDS: INSULIN NPH 100 UNIT/ML VIAL 20 UNIT SUBCUT (09:01)
[2019-08-19] MEDS: BECLOMETHASONE 80 MCG INH 10.6 GM 1 PUFF INH (09:15)
[2019-08-19 09:18] VITALS: PULSE 95; RESP 16; O2SAT 96
--- NOTE | 2019-08-19 10:18 | PT.IPTN ---
Current Diagnoses Spondylolisthesis, lumbar region (08/16/19) Spondylolisthesis, lumbosacral region (08/16/19) Other spondylosis with radiculopathy, lumbosacral region (08/16/19) Spinal stenosis, lumbar region without neurogenic claudication (08/16/19) Surgery Performed Operation Date: 08/16/19 07:45 Actual Procedures p L4-5, L5-S1 TLIF w/posterior instrumentation(Not Applicable) - Berhane Duran MD Physical Therapy Treatment Note M2 PT-IP Current Condition Start: 08/16/19 14:19 Freq: NEEDED Status: Active Protocol: Document 08/17/19 10:11 AB (Rec: 08/17/19 12:44 AB [id number]) Physical Therapy Current Condition Current Condition Evaluation Date 08/17/19 Treatment Diagnosis s/p L4-5, L5S1 fusion/lami; difficulty in walking Onset Date 08/16/19 Precautions Lumbar Precautions Log Roll,No Twisting,Limit Bending,Lifting Restriction of 10 lbs,Gait Belt above Incisional Area M3 PT-IP Subjective Start: 08/16/19 14:19 Freq: NEEDED Status: Active Protocol: Document 08/19/19 09:45 CLB (Rec: 08/19/19 10:41 CLB [id number]) Subjective Physical Therapy Visit Type Type Treatment Note Visit Start Time 09:45 Visit Stop Time 10:18 Total Visit Minutes 33 Number of VERIFICATION SPECIALIST Visits 3 Physical Therapy Visit Comments Patient Comments pt agreeable to do PT Therapy Pain Assessment Pain When Pain Assessed At Rest Pain Present Pain Present Denied Pain Location RLE Intensity 6 Scale Used Numeric (1 - 10) Pain Management Techniques Modification of Treatment,Re- positioning,Timing of Activity with Medications M4 PT-IP Mobility and Gait Start: 08/16/19 14:19 Freq: NEEDED Status: Active Protocol: Document 08/19/19 09:45 CLB (Rec: 08/19/19 10:41 CLB [id number]) PT-Bed Mobility Assessment Rolling Type of Rolling Log Rolling Level of Assist Standby Assistance Supine to Sit Supine to Sit Standby Assistance Scooting Scooting to Edge of Bed Standby Assistance PT-Transfer Assessment Sit to and From Stand Sit to and from Stand Contact Guard Assistance,1 Person Assistance Equipment Transfer Assistive Device Gait Belt,Front Wheeled Walker Orthotic/Prosthetic Devices or Brace: No Transfers Transfer Destination Toilet,Wheelchair Transfer Technique Stand Step Pivot Transfer Ability Level of Assist Standby Assistance,Contact Guard Assistance,1 Person Assistance,Use of Upper Extremities Comments Mobility Comments BP in sitting 134/71, BP in standing 126/68. Pt c/o pain 6 /10 in LE RLE>LLE. Gait Assessment Gait Gait Assistance Required: Standby Assistance,1 Person Assist Distance (Feet) 200 Able to Maintain Weight Bearing Status Yes During Gait Assistive Devices Assistive Device Gait Belt,Front Wheeled Walker Orthotic/Prosthetic Devices or Brace: No Gait Deviations General Gait Pattern Decreased Stride Length, Decreased Feet Clearance Factors Limiting Gait Function Factors Limiting Gait Function Decreased Activity Tolerance, Decreased Strength,Limited Range of Motion Comments Gait Comments Pt able to ambulate ~100ft before needing to sit in WC due to slight dizziness and RLE pain. Pt was taken back to room for BP check, BP in sitting 131/67. Pt feeling better so pt was taken to trial stairs in WC. Pt was able to ambulate ~100ft back to room with LE pain but without c/o dizziness, BP in standing after stairs and ambulation 126/71. Left pt on toilet per request of nursing with call light within reach. Stair Climbing Assessment Evaluation Level of Assist On Stairs Contact Guard Assistance,1 Person Assistance Devices Stair Climbing Assistive Devices Front Wheel Walker Technique/Endurance Stair Climbing Direction Ascend and Descend Stair Climbing Technique Step to Step Number of Steps Climbed 1 Stair Climbing Set # Repetitions (reps) 2 Comments Stair Climbing Comments Pt able to climb one platform step CGA. M5 PT-IP Objective Assessments Start: 08/16/19 14:19 Freq: NEEDED Status: Active Protocol: Document 08/17/19 10:11 AB (Rec: 08/17/19 12:44 AB [id number]) Orientation Orientation/Cognition Level of Alertness Alert Orientation Name,Place,Situation Language Function Ability Hard of Hearing Safety Awareness Decreased Safety Awareness Gross Range of Motion Lower Extremity ROM Assessment Within Functional Limits Strength Lower Extremity Strength Assessment Bilaterally Impaired Hip 3+/5 Knee 3+/5 Coordination Assessment Gross Coordination Gross Coordination WNL Sensation Assessment Sensation Gross Sensation Right LE Impaired,Left LE Impaired Light Touch Impaired Proprioception (Position) Impaired Sensation Description Numbness,Tingling Comments Sensation Comments stated the she has bilateral LE diabetic neuropathy Muscle Tone Muscle Tone WNL Yes M6 PT-IP Treatment Start: 08/16/19 14:19 Freq: NEEDED Status: Active Protocol: Document 08/17/19 10:11 AB (Rec: 08/17/19 12:44 AB [id number]) Physical Therapy Treatment Exercises Exercises Heel Slides Education Education Provided Precautions,Weight Bearing Status,Post-Op Packet,Safety M7 PT-IP Assessment and Plan Start: 08/16/19 14:19 Freq: NEEDED Status: Active Protocol: Document 08/19/19 09:45 CLB (Rec: 08/19/19 10:41 CLB [id number]) PT Summary Assessment and Plan Potential Rehabilitation Potential Good Status of Condition at Evaluation Evolving Summary Impairments Pain,ROM,Strength,Balance, Coordination,Sensation,Tone, Cognition,Bed Mobility, Transfers,Gait,Activity Tolerance Assessment Summary Pt improved with all mobility, pt able to ambulate ~200ft and climb platform step. Pt BP monitored during tx see mobility comments. Pt is able to d/c home with assist when medically stable. Goals Bed Mobility Goal Standby Assistance Transfer Goal Standby Assistance,Front Wheeled Walker Gait Goal Standby Assistance,Front Wheel Walker Gait Distance 150 Other Goals up/down 1 step using FWW Days to Meet Goals 10 Frequency of Treatment Frequency Of Treatment Twice a Day Treatment Plan Physical Therapy Treatment Plan Bed Mobility Training,Transfer Training,Gait Training, Therapeutic Exercise,Balance Retraining,Post Op Education, Discharge Planning,Hot or Cold Pack,Neuromuscular Re-ed, Coordination Retraining,Manual Therapy Recommendations To Nursing Amount of Assist Needed 1 Person Assist Discharge Recommendations PT Discharge Recommendations Home with 19/06 Assist Equipment Needed for Home Before Pt will purchase FWW. Discharge
[2019-08-19] MEDS: BISACODYL 10 MG SUPP PR (10:32)
[2019-08-19] MEDS: SODIUM CHLORIDE 0.9% FLUSH 10 ML IV (10:32)
--- NOTE | 2019-08-19 10:48 | P.DS_ITS ---
History of Present Illness History of Present Illness Date Patient Seen: 08/19/19 Time Patient Seen: 07:30 Chief complaint: [id number] Narrative: Patient has been having chronic back pain and worsening lumbar radiculopathy. Patient failed multiple conservative management with worsening pain weakness and numbness in her lower extremity. Patient has been having difficulty performing activity of daily living. After discussing risks benefits of treatment options, patient elected proceed with surgery. Discharge Providers Provider Date of admission: 08/16/19 06:05 Discharge Date: 08/19/19 Primary care physician: BENEDICT Torre Consults: 08/16/19 07:03 Consult to Respiratory Therapy Evaluate & Treat Comment: Physician Instructions: Evaluate and treat 08/16/19 13:25 Consult to Occupational Therapy Evaluate & Treat Comment: Physician Instructions: Evaluate and treat Consult to Physical Therapy Evaluate & Treat Comment: Physician Instructions: Evaluate and Treat Discharge provider: Diego Fine PA-C Summary Hospital Course Discharge Diagnosis: s/p L4-5, L5-S1 Postero-lateral and posterior interbody fu dion Sleep apnea with CPAP lumbar spinal stenosis, spondylolisthesis hypertension Hyperlipidemia GERD Diabetes mellitus, type II Asthma, seasonal Hospital Course: Patient admitted for a L4-5, L5-S1 Postero-lateral and posterior interbody fusion with Dr. Duran. Post op day 2, patient was still having dizziness and trouble standing/walking with physical therapy. With fluids and reduced medication, patient improved and by post op day 3 patient was ready for discharge home. Prescriptions for tylenol, naprosyn, visaril, ASA, and oxycodone were given. Patient eating and voiding without difficulty or assistance prior to discharge. Patient was able to have a bowel movement with a suppository. Patient was mobilizing with physical therapy prior to discharge. Pain well controlled with oxycodone and tylenol. Patient does not have outpatient PT scheduled yet. Dressing had shadow drainage on the inferior lateral side. Dressing changed prior to discharge. ASA 81 mg BID for DVT prophylaxis. Status at Discharge Cognitive/behavioral status at discharge: oriented Functional status at discharge: uses cane/walker Time Spent with Patient Time spent: Less than 30 minutes Exam Vital Signs (past 8 hours): - 08/19/19 05:51 08/19/19 07:40 08/19/19 09:18 Temperature 99.0 F 97.8 F Pulse Rate 101 H 99 H 95 H Respiratory Rate 16 18 16 Blood Pressure 105/66 113/65 Pulse Oximetry 96 98 96 Fraction of Inspired Oxygen 21 Oxygen Delivery Method Room Air Oxygen Flow Rate 0 Narrative Exam Narrative: 54 y/o female is laying in bed comfortably, in no apparent distress. A&Ox3. Dressing is intact on lower back, with shadow drainage on inferior lateral side. Lower back is warm and dry, no lesions or rashes. Patient is able to actively dorsiflex/planter flex. Sensory function is grossly intact to light touch on lower extremities bilaterally. Dorsalis pedis 2+ bilaterally. Calves warm, compressible and non-tender. Objective Labs Result Diagrams: 08/17/19 05:52 Discharge Plan Discharge Plan Patient Disposition: Home Discharge comment: Discharge patient after physical therapist clears her Discharge Med Rec/Prescriptions Prescriptions: New aspirin 81 mg tablet,delayed release (DR/EC) 81 mg PO BID Qty: 90 RF: 0 acetaminophen [Tylenol Extra Strength] 500 mg tablet 500 mg PO Q4HR Qty: 90 RF: 0 oxycodone 5 mg tablet 5 mg PO Q4-6H PRN (Reason: pain) Qty: 40 RF: 0 naproxen [Naprosyn] 500 mg tablet 500 mg PO BID Qty: 60 RF: 0 hydroxyzine pamoate [Vistaril] 25 mg capsule 25 mg PO Q6H Qty: 60 RF: 0 Continued lisinopril 20 mg Tablet 40 mg PO QPM RF: 0 lovastatin 40 mg Tablet 40 mg PO BEDTIME RF: 0 diltiazem HCl 240 mg Capsule,Extended Release 24 Hr 240 mg PO DAILY RF: 0 metformin 1,000 mg Tablet 1,000 mg PO BID RF: 0 ranitidine HCl 150 mg Tablet 300 mg PO BID RF: 0 Humulin N NPH U-100 Insulin 100 unit/mL Suspension 20 unit SUBCUT QAM RF: 0 Humulin N NPH U-100 Insulin 100 unit/mL Suspension 26 unit SUBCUT BEDTIME RF: 0 albuterol sulfate 90 mcg/actuation Hfa Aerosol Inhaler 2 puff INHALATION Q4-6H PRN (Reason: Asthma) RF: 0 fluticasone propionate 50 mcg/actuation [place],Suspension 2 spray INTRANASAL DAILY RF: 0 insulin lispro [Humalog KwikPen Insulin] 100 unit/mL Insulin Pen 10 - 30 unit SUBCUT AC RF: 0 Qvar RediHaler 80 mcg/actuation Hfa Aerosol Breath Activated 1 puff INHALATION BID RF: 0 Discontinued aspirin [Aspir-81] 81 mg Tablet,Delayed Release (Dr/Ec) 81 mg PO DAILY RF: 0 ibuprofen 200 mg Tablet 800 mg PO DAILY RF: 0 Follow up/Referrals: Berhane Duran MD [Physician] - Suze Garcia ARNP [Primary Care Provider] - Provider Discharge Instructions Diet: Carb-consistent/Diabetic Activity: Ambulate as tolerated. Follow [facility] protocol. Cold/Heat Therapy: Continue as needed. Skin/Wound/Dressing Care Report to your healthcare provider any signs of infection, such as:: increased pain and unusual drainage Dressing: Keep dressing dry. If saturated, contact the office. Visit Report/Discharge Packet Instructions: Stool Softeners, Acetaminophen, Oxycodone, Ibuprofen, DI for Transforaminal Lumbar Interbody Fusion Visit Report Forms: Stroke Signs & Symptoms Discharge Data Primary Care Provider: Suze Garcia Quality VTE Deep Vein Thrombosis/Pulmonary Embolism Present on Admission: No
--- NOTE | 2019-08-19 11:43 | PC.NURSE ---
Day shift: Pt had small BM after SUP per rectum at this time.
--- NOTE | 2019-08-19 12:02 | OT.IP.TRT ---
Current Diagnoses Spondylolisthesis, lumbar region (08/16/19) Spondylolisthesis, lumbosacral region (08/16/19) Other spondylosis with radiculopathy, lumbosacral region (08/16/19) Spinal stenosis, lumbar region without neurogenic claudication (08/16/19) Surgery Performed Operation Date: 08/16/19 07:45 Actual Procedures p L4-5, L5-S1 TLIF w/posterior instrumentation(Not Applicable) - Berhane Duran MD Occupational Therapy Treatment Note M2 OT-IP Current Condition Start: 08/17/19 16:14 Freq: Status: Active Protocol: Document 08/17/19 16:14 CGR (Rec: 08/17/19 16:29 CGR [id number]) Occupational Therapy Current Condition Current Condition Evaluation Date 08/17/19 Treatment Diagnosis L4-S1 TLIF Post Operative Precautions Lumbar Precautions Log Roll,No Twisting,Limit Bending,Lifting Restriction of 10 lbs,Gait Belt above Incisional Area M3 OT- IP Subjective and Pain Start: 08/17/19 16:14 Freq: Status: Active Protocol: Document 08/19/19 11:55 CGR (Rec: 08/19/19 12:02 CGR [id number]) OT- Subjective Occupational Therapy Visit Type Type Progress Note Visit Start Time 11:22 Visit Stop Time 11:45 Total Visit Minutes 23 Notes Pt getting up to toilet when OT entered. OT Pain Assessment Pain When Pain Assessed At Rest Pain Present Pain Present Pain Reported Location RLE Intensity 2 Scale Used Numeric (1 - 10) M4 OT- IP ADL's Start: 08/17/19 16:14 Freq: Status: Active Protocol: Document 08/19/19 11:55 CGR (Rec: 08/19/19 12:02 CGR [id number]) OT [id number] Comments OT Self-Feeding Comments Not meal time OT ADL-Grooming General Evaluation Grooming Ability Independent OT ADL-Oral Care Comments Oral Care Comments Not performed on this date OT ADL-Dressing General Eval Upper Body Dressing Ability Independent Lower Body Dressing Ability Independent Comments OT Dressing Comments Pt is able to bring foot to knee without stretch or pain for donning socks and underwear. OT ADL-Bathing Comments OT Bathing Comments Not performed on this date. M5 OT- IP IADL's Start: 08/17/19 16:14 Freq: Status: Active Protocol: Document 08/17/19 16:14 CGR (Rec: 08/17/19 16:29 CGR [id number]) OT-Instrumental Activities of Daily Living Deficits IADL Deficits Identified No Deficits Home Safety Awareness Awareness of Need for Assistance at Home Good Awareness Ability to Problem Solve Emergency Able to Problem Solve Situations Medication Management Medication Management No Deficits Identified Money Management Money Management No Deficits Identified Meal Preparation Meal Preparation Caregiver Provides Assist Pipe Coverer Helper Pipe Coverer Helper Caregiver Provides Assist Driving Driving Caregiver Provides Assist M6 OT- IP Functional Cognition Start: 08/17/19 16:14 Freq: Status: Active Protocol: Document 08/17/19 16:14 CGR (Rec: 08/17/19 16:29 CGR [id number]) Cognitive Factors Limiting Selfcare Function Cognitive Ability Level of Alertness Alert Patient Orientation Name,Age,Birthday,Month,Date, Year,Day of Week,Place, Situation Attention Span Ability Capable of Focused Attention, Capable of Sustained Attention Ability to Follow Commands Able to Follow Multi-Step Commands Memory Description No Deficits Noted Safety Awareness No Deficits Noted Problem Solving Ability No deficits Noted Executive Function Ability No Deficits Noted Abstract Thinking Ability No Deficits Noted OT- Vision and Hearing OT- Hearing Assessment OT- Hearing Assessment WFL OT- Vision Assessment Visual Acuity WFL,Glasses For Reading Visual Attentiveness WFL Occular Pursuits WFL Visual Convergence WFL Visual [place] WFL M7 OT- IP Mobility and Balance Start: 08/17/19 16:14 Freq: Status: Active Protocol: Document 08/19/19 11:55 CGR (Rec: 08/19/19 12:02 CGR [id number]) OT-Transfer Assessment Sit to and From Stand Sit to and from Stand Standby Assistance Transfers Transfer Ability Standby Assistance Technique Transfer Destination Chair,Toilet Transfer Technique Stand Step Pivot Devices Transfer Assistive Devices Gait Belt,Front Wheeled Walker Comments Mobility Comments Pt ambulated around the room wihtout difficulty. OT- Balance Assessment Sitting Balance and Reactions Static Sitting Balance Ability Normal Dynamic Sitting Balance Ability Good Standing Balance and Reactions Static Standing Balance Ability Normal Dynamic Standing Balance Ability Good M8 OT- IP Objective Assessments Start: 08/17/19 16:14 Freq: Status: Active Protocol: Document 08/17/19 16:14 CGR (Rec: 08/17/19 16:29 CGR [id number]) OT Gross Range of Motion Upper Extremity Range of Motion Assessment Within Functional Limits OT Strength Upper Extremity Strength Assessment Within Functional Limits Comments Strength Comments Grossly 4/5 OT- Coordination Assessment Upper Extremity Finger to Nose Test Within Functional Limits Finger Tapping Test Within Functional Limits OT-Muscle Tone Assessment Muscle Tone WNL Yes OT Sensation Assessment Edema Edema Absent M9 OT- IP Assessment and Plan Start: 08/17/19 16:14 Freq: Status: Active Protocol: Document 08/19/19 11:55 CGR (Rec: 08/19/19 12:02 CGR [id number]) OT Summary Assessment and Plan Potential Rehabilitation Potential Good Analytic Complexity at Evaluation Low Summary OT Impairments Pain,Functional Mobility, Grooming,Dressing,Toileting, Bathing,Toilet Transfers, Shower Transfers Progress Towards Goals Slow Progress due to Medical Issues Assessment Summary Pt tolerated session well and performed ADLs without physical assist. Reviewed back precautions and demonstrated LB dressing without physical assist. Pt had small BM seated on toilet (nursing notified). Pt c/o hotflash while having BM but otherwise did well throughout without sign of lowering BP. Pt left up in the chair at the end of session. Call button within reach and all needs at time met. Goals Grooming Goal Independent Dressing Goal Independent,Python Engineer,Sock Aid Toileting Goal Independent Bathing Goal Independent Toilet Transfer Goal Independent Shower Transfer Goal Independent Days to Meet Goals 4 Frequency of Treatment Frequency Of Treatment Once a Day Treatment Plan OT Treatment Plan ADL Training,Functional Mobility,Patient/Family Education,Discharge Planning Discharge Recommendations OT Discharge Recommendations Home with Assistance Other Discharge Recommendations ok for d/c home iw family assist. Home Equipment Needs shower seat for bathing.
[2019-08-19 12:32] VITALS: BP 137/76; PULSE 108; RESP 18; TEMP 36.7; O2SAT 99
== END 2019-08-19 15:42 | disposition home or self-care (01) | DRG 455 ==
PROVIDERS: Admitting Provider Orthopaedic Surgery Orthopaedic Surgery of the Spine; PCP Nurse Practitioner Family; Visit Provider Orthopaedic Surgery Orthopaedic Surgery of the Spine
PROC: 0SG00AJ Fusion of Lumbar Vertebral Joint with Interbody Fusion Device, Posterior Approach, Anterior Column, Open Approach (ICD-10-PCS; principal; 2019-08-16 07:45)
DX: M48.061 Spinal stenosis, lumbar region without neurogenic claudication (principal); M43.16 Spondylolisthesis, lumbar region; M48.07 Spinal stenosis, lumbosacral region; M43.17 Spondylolisthesis, lumbosacral region; M47.27 Other spondylosis with radiculopathy, lumbosacral region; E66.9 Obesity, unspecified; G47.33 Obstructive sleep apnea (adult) (pediatric); I10 Essential (primary) hypertension; E78.5 Hyperlipidemia, unspecified; E11.9 Type 2 diabetes mellitus without complications; K21.9 Gastro-esophageal reflux disease without esophagitis; Z79.4 Long term (current) use of insulin; R42 Dizziness and giddiness
CPT/HCPCS: 36415; 72100; 76000; 82962; 85014; 85018; 94640; 94760; 97116; 97162; 97165; 97530; 97535; C1776; C9290; J0131; J0330; J0690; J1170; J2405; J2704; J3010